=== PATIENT | male | born 1985 | race African-American/Black ===

== ENCOUNTER 2019-05-25 07:26 | Inpatient (IN) | payer OTHER ==
--- NOTE | 2019-05-25 08:26 | PDOC ---
History of Present Illness - General Chief Complaint: Weakness Stated Complaint: TINGLING SENSATION Time Seen by Provider: 05/25/19 07:55 History Source: Patient Exam Limitations: No Limitations - History of Present Illness Initial Comments: 05/25/19 08:21 34yo M with PMH of CP (R sided limp at baseline) presenting to ED with complaints of R fingers, forearm, R nose and R ear tingling that started at noon yesterday after a nap. Pt first thought it was due to the way he slept but symptoms persisted. He also endorses feeling more off balance than usual. He went to work and the work nurse told him to go to the ED. He states the tingling is still present and has not changed in intensity. Denies headache, injury, numbness, weakness, changes in vision, chest pain, sob, swelling, fevers , chills, n/v/d. PMD: PMH: see hpi PSH: tonsillectomy Meds: none Allergies: nkda Social: denies FH: HTN, DM NIH Stroke Scale - Last Known Well Date/Time & Onset Date Last Known Well: 05/24/19 Time Last Known Well: 12:00 - Initial Evaluation Level of consciousness: Alert Ask patient the month and their age: Answers both correctly Ask patient to open & close eyes; make fist and let go: Obeys both correctly Best gaze (horizontal eye movement): Normal Visual field testing: No visual field loss Facial paresis (Show teeth/raise eyebrows/close eyes tight): Normal symmetrical movement Motor Function: Left Arm: Normal Motor Function: Right Arm: Normal (extends arm 90 (or 45) degrees for 10 seconds without drift Motor Function: Left Leg: Normal (extends leg 30 degrees for 5 seconds without drift) Motor Function: Right Leg: Normal (extends leg 30 degrees for 5 seconds without drift) Limb Ataxia: Present in one limb Sensory(Use pinprick test arms,legs,trunk,face/side to side): Normal Best language (Describe picture, name items, read sentences): No Aphasia Dysarthria (read several words): Normal articulation Extinction and Inattention: No abnormality - Total Score NIH Stroke Scale Score: 1 Past History - Past Medical History Allergies/Adverse Reactions: Allergies Allergy/AdvReac Type Severity Reaction Status Date / Time No Known Allergies Allergy Verified 05/25/19 07:35 COPD: No Other medical history: CP - Suicide/Smoking/Psychosocial Hx Smoking History: Never smoked Have you smoked in the past 12 months: No Information on smoking cessation initiated: No Hx Alcohol Use: No Drug/Substance Use Hx: No *Physical Exam - Vital Signs Last Vital Signs Temp Pulse Resp BP Pulse Ox 97.7 F 84 18 187/126 H 96 05/25/19 07:32 05/25/19 07:58 05/25/19 07:58 05/25/19 07:58 05/25/19 07:58 ED Treatment Course - LABORATORY CBC & Chemistry Diagram: 05/25/19 08:42 05/25/19 08:42 - RADIOLOGY Radiology Studies Ordered: Category Date Time Status HEAD CT WITHOUT CONTRAST [CT] Stat CT Scan 05/25/19 07:56 Ordered Medical Decision Making - Medical Decision Making 05/25/19 08:23 34yo M with PMH of CP presenting to ED with complaints of R fingers, forearm, R nose and R ear tingling that started at noon yesterday after a nap. Pt first thought it was due to the way he slept but symptoms persisted. He also endorses feeling more off balance than usual. He went to work and the work nurse told him to go to the ED. He states the tingling is still present and has not changed in intensity. Denies headache, injury, numbness, weakness, changes in vision, chest pain, sob, swelling, fevers, chills, n/v/d. Vitals: hypertensive sbp 200s PE: cranial nerves intact, no sensory or motor deficits, cerebellar exam: Ddx includes but not limited to htn emergency v. urgency, intracranial bleed, cva, mass, malignancy, electrolyte abnormality, Lyme disease, encephalopathy low suspicion for infectious process. -CT head, ekg -cbc, cmp, coags, cardiac enzymes, ua NIHSS 1, R finger-nose. Symptoms present for over 4 hours, not a candidate for tPA 05/25/19 08:58
--- NOTE | 2019-05-25 08:43 | PDOC ---
Attending Attestation - Resident Resident Name: Dorothea Westfall - ED Attending Attestation I have performed the following: I have examined & evaluated the patient, The case was reviewed & discussed with the resident, I agree w/resident's findings & plan, Exceptions are as noted - HPI HPI: 05/25/19 08:40 34y hx of CP (mild R leg weakness) presents with complaint of parasthesias of R hand/forearm and on his Right nose since wakening from a nap yetserday around noon. Pte notes she does have slighthly increased waekness of his R leg where he feels a bit off balance when he is walking aorund. Pt denies any associated visoin changes, n/v, cp, palpitations, abd pain, headache, dizziness, vertigo, difficulty speaking, focal weakness beside R leg. GENERAL: The patient is awake, alert, and fully oriented, Nontoxic - in no acute distress. HEAD: Normocephalic, atraumatic. EYES: extraocular movements intact, sclera anicteric, conjunctiva clear. ENT: Normal voice, Moist mucous membranes. NECK: Normal range of motion, supple LUNGS: Breath sounds equal, clear to auscultation bilaterally. No wheezes, no rhonchi, no rales. HEART: Regular rate and rhythm, normal S1 and S2 without murmur, rub or gallop. ABDOMEN: Soft, nontender, No guarding, no rebound. No CVA tenderness EXTREMITIES: Normal range of motion, no edema. NEUROLOGICAL: No facial assymetry, Normal speech, PSYCH: Normal mood, normal affect. SKIN: Warm, Dry, normal turgor, NEURO: Mental status: The patient is oriented x3. Cranial nerves: Cranial nerves II through XII are intact Motor: The upper extremities are 5 over 5 in all muscle groups. R leg with subtle drift Sensation: Sensation is intact to light touch throughout. romberg negative Cerebellar: [id number]-[id number] is slightly ataxic on RUE Reflexes: 2+ and symmetric in the upper and lower extremities. Gait: deferred - Physicial Exam PE: 05/26/19 13:58 see above - Medical Decision Making 05/25/19 10:37 pts labs reviewed will treat his bp with labetalol ct neg for bleed, but may benefit from MRI to tease out MS vs CVA wlil give ASA will dw neuro and will admit
[2019-05-25 09:01] LABS: PH,URINE 5.5 (5.0-8.0); URINE APPEARANCE CLEAR; URINE BILIRUBIN NEGATIVE (NEGATIVE); URINE COLOR YELLOW; URINE GLUCOSE (UA) NEGATIVE (NEGATIVE); URINE KETONE NEGATIVE (NEGATIVE); URINE LEUK ESTERASE NEGATIVE (NEGATIVE); URINE NITRITE NEGATIVE (NEGATIVE); URINE PROTEIN NEGATIVE (NEGATIVE); URINE UROBILINOGEN 0.2 mg/dL (0.2-1.0)
[2019-05-25 09:02] LABS: INR 1.06 (0.83-1.09); PROTHROMBIN TIME (PATIENT) 12.5 SEC (9.7-13.0)
[2019-05-25 09:04] LABS: ACTIVATED PTT 37.3 SECONDS (25.2-36.5)
[2019-05-25 09:11] LABS: ALBUMIN 4.2 g/dl (3.4-5.0); BILIRUBIN,TOTAL 0.5 mg/dL (0.2-1); BLOOD UREA NITROGEN 12.1 mg/dL (7-18); CALCIUM 9.1 mg/dL (8.5-10.1); CREATININE 1.1 mg/dL (0.55-1.3); MAGNESIUM 2.3 mg/dL (1.8-2.4); TOT PROT 8.2 g/dl (6.4-8.2)
[2019-05-25 09:18] LABS: BASO % 0.5 % (0-2.0); EOS % 1.5 % (0-4.5); HEMATOCRIT 44.2 % (35.4-49); HEMOGLOBIN 13.6 GM/dL (11.7-16.9); LYMPH % 15.3 % (8-40); MCH 21.5 pg (25.7-33.7); MCHC 30.9 g/dl (32.0-35.9); MEAN CELL VOLUME 69.8 fl (80-96); MEAN PLT VOLUME 8.9 fl (7.5-11.1); NEUT % 75.7 % (42.8-82.8); PLATELET COUNT 198 K/MM3 (134-434); RBC 6.33 M/mm3 (4.00-5.60); RDW 14.7 % (11.9-15.9); WHITE BLOOD COUNT 7.9 K/mm3 (4.0-10.0)
[2019-05-25] MEDS: LABETALOL HCL 5 MG/1 ML (100MG/20 ML VIAL) IVPUSH ONE ×2 (10:27→10:30)
[2019-05-25] MEDS ORDERED: ASPIRIN 81 MG CHEWABLE TABLETS PO ONE (10:37)
[2019-05-25] MEDS ORDERED: ASPIRIN COATED 81 MG TABLET.EC ONE (10:40)
--- NOTE | 2019-05-25 11:05 | CON.CARD ---
Consult Consult Specialty:: Cardiology Referred by:: Sadia Sena MD Reason for Consultation:: Hypertensive urgency - History of Present Illness Chief Complaint: Hypertensive urgency History of Present Illness: 34y hx of CP (mild R leg weakness) presents with complaint of parasthesias of R hand/forearm and on his right nose since wakening from a nap yesterday around noon since resolving. Pt notes she does have slightly increased weakness of his R leg where he feels a bit off balance when he is walking around. Pt denies any associated vision changes, n/v, cp, dyspnea, near or true syncope, palpitations , abd pain, headache, dizziness, vertigo, difficulty speaking, focal weakness beside R leg. SBP uncontrolled in ER-- > 180, given ASA and labetolol. MRI reviewed+ acute left basal ganglia infarct. - History Source History Provided By: Patient Limitations to Obtaining History: No Limitations - Alcohol/Substance Use Hx Alcohol Use: No - Smoking History Smoking history: Never smoked Have you smoked in the past 12 months: No Home Medications - Allergies Allergies/Adverse Reactions: Allergies Allergy/AdvReac Type Severity Reaction Status Date / Time No Known Allergies Allergy Verified 05/25/19 07:35 - Home Medications Home Medications: Ambulatory Orders NK [No Known Home Medication] 05/25/19 Review of Systems - Review of Systems Neurological: reports: Numbness, Parasthesia, Pre-Existing Deficit Vital Signs: Vital Signs Temperature 97.7 F 05/25/19 07:32 Pulse Rate 74 05/25/19 10:40 Respiratory Rate 15 05/25/19 10:40 Blood Pressure 162/112 H 05/25/19 10:40 O2 Sat by Pulse Oximetry (%) 95 05/25/19 10:40 Constitutional: Yes: No Distress, Calm Neck: Yes: Supple Respiratory: Yes: Regular, CTA Bilaterally Gastrointestinal: Yes: Normal Bowel Sounds, Soft Cardiovascular: Yes: Regular Rate and Rhythm JVD: No Carotid Bruit: No Heart Sounds: Yes: S1, S2 Edema: No - Other Data Labs, Other Data: CBC, BMP 05/25/19 08:42 05/25/19 08:42 INR, PTT INR 1.06 (0.83-1.09) 05/25/19 08:42 Troponin, BNP 05/25/19 08:42 Troponin I < 0.02 Troponin, BNP 05/25/19 08:42 Troponin I < 0.02 NSR @ 76 lateral TWI Problem List - Problems (1) Hypertensive urgency Code(s): I16.0 - HYPERTENSIVE URGENCY (2) Basal ganglia stroke Code(s): I63.9 - CEREBRAL INFARCTION, UNSPECIFIED Assessment/Plan IMPRESSION: Focal acute/subacute infarct in the left periventricular white matter extending inferiorly to posterior margin of the left basal ganglia measuring approximately 6 mm in width. Mild dilatation of the lateral ventricles and T2 hyperintense foci in the periventricular white matter suspicious for demyelinating plaques. Further characterization with T2 FLAIR sagittal images of the brain is needed. Contrast-enhanced MRI of the brain with also be helpful to rule out any active demyelinating plaques. 1.5 cm retention cyst versus polyp in the left x-ray antrum, inferiorly 1. Acute left basal ganglia stroke 2. Hypertensive urgency 3. Mild cerebral palsy P:1. Ruled out for [place], check TSH, lipid panel, Ha1c, echo to assess ventricular and valve fxn 2. monitor technician r/o PAF 3. Agree with ASA 81 qd, start losartan 25 qd with uptitration as hemodynamics tolerate 4. Thank you for consultative opportunity
--- NOTE | 2019-05-25 11:09 | EKG ---
Test Reason : Blood Pressure : / mmHG Vent. Rate : 076 BPM Atrial Rate : 076 BPM P-R Int : 178 ms QRS Dur : 078 ms QT Int : 384 ms P-R-T Axes : 068 -19 134 degrees QTc Int : 432 ms NORMAL SINUS RHYTHM T WAVE ABNORMALITY, CONSIDER LATERAL ISCHEMIA ABNORMAL ECG NO PREVIOUS ECGS AVAILABLE Confirmed by HELENE SPRING MD ([id number]) on 05/25/2019 11:09:22 AM Referred By: Confirmed By:HELENE SPRING MD
[2019-05-25] MEDS ORDERED: LABETALOL HCL 5 MG/1 ML (100MG/20 ML VIAL) IVPUSH ONE (13:21)
[2019-05-25 14:51] LABS: ANISOCYTOSIS 2+; MACROCYTOSIS 0; PLATELET ESTIMATE NORMAL; TEAR DROP CELLS 1+
--- NOTE | 2019-05-25 17:09 | HP ---
Admitting History and Physical - Primary Care Physician PCP: Sadia Sena - Admission History of Present Illness: 34y hx of CP (mild R leg weakness) presents with complaint of parasthesias of R hand/forearm and on his Right nose since wakening from a nap yetserday around noon. Pte notes she does have slighthly increased waekness of his R leg where he feels a bit off balance when he is walking aorund. Pt denies any associated visoin changes, n/v, cp, palpitations, abd pain, headache, dizziness, vertigo, difficulty speaking, focal weakness beside R leg. - Past Medical History Cardiovascular: Yes: HTN - Smoking History Smoking history: Never smoked Have you smoked in the past 12 months: No - Alcohol/Substance Use Hx Alcohol Use: No Home Medications - Allergies Allergies/Adverse Reactions: Allergies Allergy/AdvReac Type Severity Reaction Status Date / Time No Known Allergies Allergy Verified 05/25/19 07:35 - Home Medications Home Medications: Ambulatory Orders Aspirin [ASA -] 81 mg PO DAILY #30 tab.chew 05/26/19 Losartan Potassium [Cozaar -] 25 mg PO DAILY #30 tablet 05/26/19 Metoprolol Succinate [Toprol XL -] 25 mg PO DAILY #30 tab.sr.24h 05/26/19 Rosuvastatin [Crestor -] 20 mg PO HS #30 tablet 05/26/19 Physical Examination Vital Signs: Vital Signs Temperature 98.3 F 05/25/19 15:45 Pulse Rate 72 05/25/19 15:45 Respiratory Rate 15 05/25/19 15:45 Blood Pressure 177/117 H 05/25/19 15:45 O2 Sat by Pulse Oximetry (%) 96 05/25/19 15:45 Constitutional: Yes: No Distress HENT: Yes: Atraumatic Neck: Yes: Supple Cardiovascular: Yes: Regular Rate and Rhythm Respiratory: Yes: CTA Bilaterally Gastrointestinal: Yes: Normal Bowel Sounds Extremities: Yes: WNL Edema: No Peripheral Pulses WNL: Yes Neurological: Yes: Alert, Oriented ...Motor Strength: WNL Labs: CBC, BMP 05/25/19 08:42 05/25/19 08:42 Imaging - Results Cat Scan: Report Reviewed Problem List - Problems (1) HTN (hypertension) Assessment/Plan: on meds monitor bp Code(s): I10 - ESSENTIAL (PRIMARY) HYPERTENSION (2) Hypertensive urgency Code(s): I16.0 - HYPERTENSIVE URGENCY (3) Tingling of right arm and right side of face Assessment/Plan: will get mri brain neuro consult Code(s): R20.2 - PARESTHESIA OF SKIN Assessment/Plan Laboratory Tests 05/25/19 05/25/19 05/25/19 08:42 08:42 08:42 WBC 7.9 RBC 6.33 H Hgb 13.6 Hct 44.2 MCV 69.8 L MCH 21.5 L MCHC 30.9 L RDW 14.7 Plt Count 198 MPV 8.9 Absolute Neuts (auto) 6.0 Neutrophils % 75.7 Lymphocytes % 15.3 Monocytes % 7.0 Eosinophils % 1.5 Basophils % 0.5 Nucleated RBC % 0 Hypochromia 0 Platelet Estimate Normal Platelet Comment Present Polychromasia 0 Poikilocytosis 2+ Anisocytosis 2+ Microcytosis 1+ Macrocytosis 0 Spherocytes 1+ Tear Drop Cells 1+ [place] Cells 2+ PT with INR INR PTT (Actin FS) Sodium 140 Potassium 4.0 Chloride 104 Carbon Dioxide 32 Anion Gap 4 L BUN 12.1 Creatinine 1.1 Est GFR (CKD-EPI)AfAm 100.27 Est GFR (CKD-EPI)NonAf 86.51 Random Glucose 109 H Calcium 9.1 Magnesium 2.3 Total Bilirubin 0.5 AST 23 ALT 50 Alkaline Phosphatase 78 Creatine Kinase 141 Troponin I < 0.02 Total Protein 8.2 Albumin 4.2 Urine Color Urine Appearance Urine pH Ur Specific [place] Urine Protein Urine Glucose (UA) Urine Ketones Urine Blood Urine Nitrite Urine Bilirubin Urine Urobilinogen Ur Leukocyte Esterase Blood Type Antibody Screen 05/25/19 05/25/19 05/25/19 08:42 08:42 08:42 WBC RBC Hgb Hct MCV MCH MCHC RDW Plt Count MPV Absolute Neuts (auto) Neutrophils % Lymphocytes % Monocytes % Eosinophils % Basophils % Nucleated RBC % Hypochromia Platelet Estimate Platelet Comment Polychromasia Poikilocytosis Anisocytosis Microcytosis Macrocytosis Spherocytes Tear Drop Cells [place] Cells PT with INR 12.50 INR 1.06 PTT (Actin FS) 37.3 H Sodium Potassium Chloride Carbon Dioxide Anion Gap BUN Creatinine Est GFR (CKD-EPI)AfAm Est GFR (CKD-EPI)NonAf Random Glucose Calcium Magnesium Total Bilirubin AST ALT Alkaline Phosphatase Creatine Kinase Troponin I Total Protein Albumin Urine Color Yellow Urine Appearance Clear Urine pH 5.5 Ur Specific [place] 1.015 Urine Protein Negative Urine Glucose (UA) Negative Urine Ketones Negative Urine Blood Negative Urine Nitrite Negative Urine Bilirubin Negative Urine Urobilinogen 0.2 Ur Leukocyte Esterase Negative Blood Type O POSITIVE Antibody Screen Negative Active Medications Generic Name Dose Route Start Last Admin Trade Name Freq PRN Reason Stop Dose Admin Acetaminophen 650 mg 05/25/19 17:15 Tylenol Oral Solution - PO Q6H PRN PAIN Aspirin 81 mg 05/26/19 10:00 05/26/19 09:36 Asa - PO 81 mg DAILY HUGO Administration Losartan Potassium 50 mg 05/27/19 10:00 Cozaar - PO DAILY HUGO Metoprolol Succinate 25 mg 05/26/19 10:00 05/26/19 09:36 Toprol Xl - PO 25 mg DAILY HUGO Administration Metoprolol Succinate 50 mg 05/27/19 10:00 Toprol Xl - PO DAILY [facility] Rosuvastatin Calcium 20 mg 05/26/19 22:00 Crestor - PO HS HUGO
[2019-05-25] MEDS ORDERED: ACETAMINOPHEN 650 MG/20.3 ML ORAL SOLUTION (CUPS) PO PRN (17:15)
[2019-05-25] MEDS ORDERED: metFORMIN HCL 500 MG TABLET (FP) ONE (17:54)
--- NOTE | 2019-05-25 19:02 | CON.NEURO ---
Consult - History of Present Illness History of Present Illness: 34y hx of CP (mild R leg weakness) presents with complaint of parasthesias of R hand/forearm and on his Right nose since wakening from a nap yesterday around noon. Pte notes she does have slighthly increased waekness of his R leg where he feels a bit off balance when he is walking around. Pt denies any associated visoin changes, n/v, cp, palpitations, abd pain, headache, dizziness, vertigo, difficulty speaking, focal weakness beside R leg. SBP uncontrolled in ER-- > 180. MRI reviewed+ acute L BG infarct. IMPRESSION: Focal acute/subacute infarct in the left periventricular white matter extending inferiorly to posterior margin of the left basal ganglia measuring approximately 6 mm in width. Mild dilatation of the lateral ventricles and T2 hyperintense foci in the periventricular white matter suspicious for demyelinating plaques. Further characterization with T2 FLAIR sagittal images of the brain is needed. Contrast-enhanced MRI of the brain with also be helpful to rule out any active demyelinating plaques. 1.5 cm retention cyst versus polyp in the left x-ray antrum, inferiorly - Past Medical History Cardio/Vascular: Yes: HTN - Alcohol/Substance Use Hx Alcohol Use: No - Smoking History Smoking history: Never smoked Have you smoked in the past 12 months: No Home Medications - Allergies Allergies/Adverse Reactions: Allergies Allergy/AdvReac Type Severity Reaction Status Date / Time No Known Allergies Allergy Verified 05/25/19 07:35 - Home Medications Home Medications: Ambulatory Orders NK [No Known Home Medication] 05/25/19 Physical Exam-Neuro Vital Signs: Vital Signs Temperature 98.3 F 05/25/19 15:45 Pulse Rate 78 05/25/19 17:22 Respiratory Rate 20 05/25/19 17:22 Blood Pressure 167/112 H 05/25/19 17:22 O2 Sat by Pulse Oximetry (%) 96 05/25/19 17:22 Labs: CBC, BMP 05/25/19 08:42 05/25/19 08:42 INR, PTT INR 1.06 (0.83-1.09) 05/25/19 08:42 - Neuro Exam Level Of Consciousness: Yes: Alert, Oriented to Person (strabimus and dysicnjuagte gaze at baseline, no facial, motor min R drift, pp dec on R , reflexes symmetric) Imaging - Results Cat Scan: Report Reviewed, Image Reviewed Problem List - Problems (1) Basal ganglia stroke Code(s): I63.9 - CEREBRAL INFARCTION, UNSPECIFIED (2) HTN (hypertension) Code(s): I10 - ESSENTIAL (PRIMARY) HYPERTENSION (3) Hypertensive urgency Code(s): I16.0 - HYPERTENSIVE URGENCY Assessment/Plan 34y hx of CP (mild R leg weakness) presents with complaint of parasthesias of R hand/forearm and on his Right nose since wakening from a nap yesterday around noon. Pte notes she does have slighthly increased waekness of his R leg where he feels a bit off balance when he is walking around. Pt denies any associated visoin changes, n/v, cp, palpitations, abd pain, headache, dizziness, vertigo, difficulty speaking, focal weakness beside R leg. SBP uncontrolled in ER-- > 180. MRI reviewed+ acute L BG infarct. IMPRESSION: Focal acute/subacute infarct in the left periventricular white matter extending inferiorly to posterior margin of the left basal ganglia measuring approximately 6 mm in width. Mild dilatation of the lateral ventricles and T2 hyperintense foci in the periventricular white matter suspicious for demyelinating plaques. Further characterization with T2 FLAIR sagittal images of the brain is needed. Contrast-enhanced MRI of the brain with also be helpful to rule out any active demyelinating plaques. 1.5 cm retention cyst versus polyp in the left x-ray antrum, inferiorly AP : new L BG infarct presents with new R sided hemisensory; out of TPA window, sx started last night. + L BG infarct small vessel mediated setting of elevated BP, he was unaware of hypertension Check Dopplers, holter, echo ASA, statin, BP control, correct 25% within first 24 hours, cardiology eval lipids, ESR, TSH, tox screen DR LUQUE
[2019-05-25] MEDS ORDERED: LOSARTAN POTASSIUM 50 MG TABLET (FP) ONE (19:51)
[2019-05-25] MEDS: LOSARTAN POTASSIUM 25 MG TABLET PO SCH (19:56)
[2019-05-25] MEDS ORDERED: ASPIRIN 81 MG CHEWABLE TABLETS ONE (22:00)
[2019-05-26 01:51] VITALS: BMI 39.4
--- NOTE | 2019-05-26 06:17 | PN ---
Progress Note (short form) - Note Progress Note: Chief Complaint: Event noted, notes reviewed, resting in bed denies any chest pain or dyspnea, right leg weakness improved History of Present Illness: Seen and examined on telemetry. Event noted, notes reviewed, resting in bed denies any chest pain or dyspnea, right leg weakness improved - Current Medication List Current Medications Acetaminophen (Tylenol Oral Solution -) 650 mg PO Q6H PRN PRN Reason: PAIN Aspirin (Asa -) 81 mg PO DAILY [facility] Losartan Potassium (Cozaar -) 25 mg PO DAILY [facility] Last Admin: 05/25/19 19:56 Dose: 25 mg Review of Systems Cardiovascular: As noted above Respiratory: denies Cough or Sputum Production Gastrointestinal: denies: Nausea, Vomiting, Diarrhea, Constipation or Abdominal Discomfort Musculoskeletal: Right Leg Weakness, improved - Objective Vital Signs: Last Vital Signs Temp Pulse Resp BP Pulse Ox 98.8 F 81 18 141/84 97 05/26/19 05:00 05/26/19 05:00 05/26/19 05:00 05/26/19 05:00 05/26/19 01:55 Intake & Output 05/23/19 05/24/19 05/25/19 05/26/19 23:59 23:59 23:59 23:59 Intake Total 600 Balance 600 Weight 272 lb 282 lb 12.8 oz Constitutional: No Distress, Calm Neck: Supple Negative JVD No Bruit Respiratory: Clear to A&P Bilaterally Cardiovascular: S1 S2 Regular Rate Rhythm Gastrointestinal: Soft Benign Normal Bowel Sounds Ext: Negative Edema Labs: Troponin, BNP 05/25/19 05/25/19 08:42 17:55 Troponin I < 0.02 < 0.02 CBC, BMP 05/25/19 08:42 05/25/19 08:42 Hepatic Panel Total Bilirubin 0.5 mg/dL (0.2-1) 05/25/19 08:42 AST 23 U/L (15-37) 05/25/19 08:42 ALT 50 U/L (13-61) 05/25/19 08:42 Alkaline Phosphatase 78 U/L (45-117) 05/25/19 08:42 Albumin 4.2 g/dl (3.4-5.0) 05/25/19 08:42 INR, PTT INR 1.06 (0.83-1.09) 05/25/19 08:42 ASSESSMENT: 1. clinical presentation consistent with acute left basal ganglia stroke 2. Hypertensive urgency 3. Mild cerebral palsy PLAN: 1. Echocardiography to assess bi-ventricular and valve functions 2. Continue telemetry monitoring to exclude PAF/paroxysmal atrial fibrillation- may require prison monitoring if embolic stroke is a suspect 3. Continue ASA 4. Continue Losartan with uptitration as hemodynamics tolerate 5. Add B-Blockers Toprol XL with uptitration as hemodynamics tolerate Attila Devries M.D.
[2019-05-26] MEDS: LOSARTAN POTASSIUM 25 MG TABLET PO SCH (09:36)
[2019-05-26] MEDS: ASPIRIN 81 MG CHEWABLE TABLETS PO SCH (09:36)
[2019-05-26] MEDS ORDERED: metoPROLOL SUCCINATE 25 MG TAB.SR.24H (FP) PO SCH (10:00)
--- NOTE | 2019-05-26 10:46 | ECHO ---
Version: 1 Name: JASON OWENS Exam: Adult Echocardiogram Study Date: 05/26/2019, 8:10 AM Age: 34 Years MMode/2D Measurements & Calculations IVSd: 1.52 cm LVIDs: 2.5 cm LVIDd: 3.6 cm LVPWd: 1.24 cm ACS: 2.18 cm Ao root diam: 2.26 cm LA dimension: 2.7 cm Doppler Measurements & Calculations MV E max robert: 67.5 cm/sec Med E/e': 11.0 MV A max robert: 52.6 cm/sec Med Peak E' Robert: 6.1 cm/sec MV E/A: 1.28 Lat E/e': 12.3 Lat Peak E' Robert: 5.5 cm/sec Ao max P.5 mmHg Ao mean P.15 mmHg Ao V2 max: 94.1 cm/sec Left Ventricle The left ventricular size, thickness and function are normal. Ejection Fraction = 65. The transmitra l spectral Doppler flow pattern is suggestive of impaired LV relaxation. Right Ventricle The right ventricle is normal in size and function. Atria Normal left and right atrial size and function. Mitral Valve There is moderate mitral valve thickening. There is mild mitral regurgitation. Tricuspid Valve The tricuspid valve is normal. There is mild tricuspid regurgitation. Aortic Valve There is moderate aortic sclerosis.;. Mild aortic regurgitation. Pulmonic Valve The pulmonic valve is not well visualized. Great Vessels The aortic root is normal size. Normal aortic arch, descending and ascending aorta. Pericardium/Pleura There is no pericardial effusion. Summary Statements The left ventricular size, thickness and function are normal The right ventricle is normal in size and function. The transmitral spectral Doppler flow pattern is suggestive of impaired LV relaxation. Normal left and right atrial size and function. There is moderate mitral valve thickening. There is mild mitral regurgitation. The tricuspid valve is normal. There is mild tricuspid regurgitation. There is moderate aortic sclerosis.; Mild aortic regurgitation. The pulmonic valve is not well visualized. The aortic root is normal size. Normal aortic arch, descending and ascending aorta There is no pericardial effusion. Joseph Xiong 05/26/2019, 9:46 AM Ordering Physician: Nolan Castaneda Performed By: Ericka Watts
--- NOTE | 2019-05-26 13:58 | PN ---
Progress Note (short form) - Note Progress Note: 34y hx of CP (mild R leg weakness) presents with complaint of parasthesias of R hand/forearm and on his Right nose since wakening from a nap yesterday around noon. Pte notes she does have slighthly increased waekness of his R leg where he feels a bit off balance when he is walking around. Pt denies any associated visoin changes, n/v, cp, palpitations, abd pain, headache, dizziness, vertigo, difficulty speaking, focal weakness beside R leg. SBP uncontrolled in ER-- > 180. MRI reviewed+ acute L BG infarct. IMPRESSION: Focal acute/subacute infarct in the left periventricular white matter extending inferiorly to posterior margin of the left basal ganglia measuring approximately 6 mm in width. Mild dilatation of the lateral ventricles and T2 hyperintense foci in the periventricular white matter suspicious for demyelinating plaques. Further characterization with T2 FLAIR sagittal images of the brain is needed. Contrast-enhanced MRI of the brain with also be helpful to rule out any active demyelinating plaques. 1.5 cm retention cyst versus polyp in the left x-ray antrum, inferiorly Fu : numbness R side face somewhat better--no new Sx ECHO -impaired LV relaxation otherwise NL - Past Medical History Cardio/Vascular: Yes: HTN - Alcohol/Substance Use Hx Alcohol Use: No - Smoking History Smoking history: Never smoked Have you smoked in the past 12 months: No Home Medications - Allergies Allergies/Adverse Reactions: Allergies Allergy/AdvReac Type Severity Reaction Status Date / Time No Known Allergies Allergy Verified 05/25/19 07:35 - Home Medications Home Medications: Ambulatory Orders NK [No Known Home Medication] 05/25/19 Physical Exam-Neuro Vital Signs: Vital Signs Temperature 98.3 F 05/25/19 15:45 Pulse Rate 78 05/25/19 17:22 Respiratory Rate 20 05/25/19 17:22 Blood Pressure 167/112 H 05/25/19 17:22 O2 Sat by Pulse Oximetry (%) 96 05/25/19 17:22 Labs: CBC, BMP 05/25/19 08:42 05/25/19 08:42 INR, PTT INR 1.06 (0.83-1.09) 05/25/19 08:42 - Neuro Exam Level Of Consciousness: Yes: Alert, Oriented to Person (strabimus and dysicnjuagte gaze at baseline, no facial, motor min R drift, pp dec on R , reflexes symmetric) Imaging - Results Cat Scan: Report Reviewed, Image Reviewed Problem List - Problems (1) Basal ganglia stroke Code(s): I63.9 - CEREBRAL INFARCTION, UNSPECIFIED (2) HTN (hypertension) Code(s): I10 - ESSENTIAL (PRIMARY) HYPERTENSION (3) Hypertensive urgency Code(s): I16.0 - HYPERTENSIVE URGENCY Assessment/Plan 34y hx of CP (mild R leg weakness) presents with complaint of parasthesias of R hand/forearm and on his Right nose since wakening from a nap yesterday around noon. Pte notes she does have slighthly increased waekness of his R leg where he feels a bit off balance when he is walking around. Pt denies any associated visoin changes, n/v, cp, palpitations, abd pain, headache, dizziness, vertigo, difficulty speaking, focal weakness beside R leg. SBP uncontrolled in ER-- > 180. MRI reviewed+ acute L BG infarct. IMPRESSION: Focal acute/subacute infarct in the left periventricular white matter extending inferiorly to posterior margin of the left basal ganglia measuring approximately 6 mm in width. Mild dilatation of the lateral ventricles and T2 hyperintense foci in the periventricular white matter suspicious for demyelinating plaques. Further characterization with T2 FLAIR sagittal images of the brain is needed. Contrast-enhanced MRI of the brain with also be helpful to rule out any active demyelinating plaques. 1.5 cm retention cyst versus polyp in the left x-ray antrum, inferiorly AP : new L BG infarct presents with new R sided hemisensory; out of TPA window, sx started 05/24/19 + L BG infarct small vessel mediated setting of elevated BP, he was unaware of hypertension Dopplers -P Echo noted cont ASA, statin, BP control -to optimize await Dopplers and then can be cleared ; can FU as outpt DR LUQUE [phone] Problem List - Problems (1) Basal ganglia stroke Code(s): I63.9 - CEREBRAL INFARCTION, UNSPECIFIED (2) HTN (hypertension) Code(s): I10 - ESSENTIAL (PRIMARY) HYPERTENSION (3) Hypertensive urgency Code(s): I16.0 - HYPERTENSIVE URGENCY
--- NOTE | 2019-05-26 15:10 | DS ---
Physical Examination Vital Signs: Vital Signs Temperature 98.1 F 05/26/19 14:00 Pulse Rate 85 05/26/19 14:00 Respiratory Rate 18 05/26/19 14:00 Blood Pressure 161/101 H 05/26/19 14:00 O2 Sat by Pulse Oximetry (%) 98 05/26/19 09:00 Constitutional: Yes: No Distress HENT: Yes: Atraumatic Neck: Yes: Supple Cardiovascular: Yes: Regular Rate and Rhythm Respiratory: Yes: CTA Bilaterally Gastrointestinal: Yes: Normal Bowel Sounds Extremities: Yes: WNL Edema: No Peripheral Pulses WNL: Yes Neurological: Yes: Alert, Oriented Labs: CBC, BMP 05/25/19 08:42 05/25/19 08:42 Discharge Summary Reason For Visit: HYPERTENSIVE EMERGENCY,PARESTHESIA Current Active Problems Basal ganglia stroke (Acute) HTN (hypertension) (Acute) Hypertensive urgency (Acute) - Instructions Referrals: Attila Devries MD [Staff Physician] - Paresh Guaman DO [Staff Physician] - Sadia Sena MD [Staff Physician] - - Home Medications Comprehensive Discharge Medication List: Ambulatory Orders Aspirin [ASA -] 81 mg PO DAILY #30 tab.chew 05/26/19 Losartan Potassium [Cozaar -] 25 mg PO DAILY #30 tablet 05/26/19 Metoprolol Succinate [Toprol XL -] 25 mg PO DAILY #30 tab.sr.24h 05/26/19 Rosuvastatin [Crestor -] 20 mg PO HS #30 tablet 05/26/19 fu neuro and cardio as out patient
[2019-05-26] MEDS ORDERED: LOSARTAN POTASSIUM 25 MG TABLET PO ONE (17:15)
[2019-05-26] MEDS ORDERED: metoPROLOL SUCCINATE 25 MG TAB.SR.24H (FP) PO ONE (17:15)
--- NOTE | 2019-05-26 17:34 | PN ---
Progress Note, Physician - Current Medication List Current Medications: Active Medications Acetaminophen (Tylenol Oral Solution -) 650 mg PO Q6H PRN PRN Reason: PAIN Aspirin (Asa -) 81 mg PO DAILY [facility] Last Admin: 05/26/19 09:36 Dose: 81 mg Losartan Potassium (Cozaar -) 50 mg PO DAILY [facility] Metoprolol Succinate (Toprol Xl -) 25 mg PO DAILY [facility] Last Admin: 05/26/19 09:36 Dose: 25 mg Metoprolol Succinate (Toprol Xl -) 50 mg PO DAILY [facility] Rosuvastatin Calcium (Crestor -) 20 mg PO [facility] - Objective Vital Signs: Vital Signs Temperature 98.1 F 05/26/19 14:00 Pulse Rate 85 05/26/19 14:00 Respiratory Rate 18 05/26/19 14:00 Blood Pressure 161/101 H 05/26/19 14:00 O2 Sat by Pulse Oximetry (%) 98 05/26/19 09:00 Constitutional: Yes: No Distress HENT: Yes: Atraumatic Neck: Yes: Supple Cardiovascular: Yes: Regular Rate and Rhythm Respiratory: Yes: CTA Bilaterally Gastrointestinal: Yes: Normal Bowel Sounds Extremities: Yes: WNL Edema: No Neurological: Yes: Alert, Oriented Labs: CBC, BMP 05/25/19 08:42 05/25/19 08:42 INR, PTT INR 1.06 (0.83-1.09) 05/25/19 08:42 Problem List - Problems (1) HTN (hypertension) Assessment/Plan: on meds bp still high monitor Code(s): I10 - ESSENTIAL (PRIMARY) HYPERTENSION (2) Hypertensive urgency Code(s): I16.0 - HYPERTENSIVE URGENCY (3) Tingling of right arm and right side of face Assessment/Plan: mri brain done report reviewed Focal acute/subacute infarct in the left periventricular white matter extending inferiorly to posterior margin of the left basal ganglia measuring approximately 6 mm in width. Code(s): R20.2 - PARESTHESIA OF SKIN
[2019-05-26] MEDS ORDERED: ROSUVASTATIN CA 20 MG TABLET (FP) PO SCH (22:00)
[2019-05-26] MEDS: LOSARTAN POTASSIUM 50 MG TABLET (FP) PO SCH (22:00)
[2019-05-27] MEDS: LOSARTAN POTASSIUM 50 MG TABLET (FP) PO SCH (09:42)
[2019-05-27] MEDS: ASPIRIN 81 MG CHEWABLE TABLETS PO SCH (09:42)
[2019-05-27] MEDS ORDERED: LOSARTAN POTASSIUM 50 MG TABLET (FP) PO SCH (10:00)
--- NOTE | 2019-05-27 11:10 | PN ---
Progress Note (short form) - Note Progress Note: 34y hx of CP (mild R leg weakness) presents with complaint of parasthesias of R hand/forearm and on his Right nose since wakening from a nap yesterday around noon. Pte notes she does have slighthly increased waekness of his R leg where he feels a bit off balance when he is walking around. Pt denies any associated visoin changes, n/v, cp, palpitations, abd pain, headache, dizziness, vertigo, difficulty speaking, focal weakness beside R leg. SBP uncontrolled in ER-- > 180. MRI reviewed+ acute L BG infarct. IMPRESSION: Focal acute/subacute infarct in the left periventricular white matter extending inferiorly to posterior margin of the left basal ganglia measuring approximately 6 mm in width. Mild dilatation of the lateral ventricles and T2 hyperintense foci in the periventricular white matter suspicious for demyelinating plaques. Further characterization with T2 FLAIR sagittal images of the brain is needed. Contrast-enhanced MRI of the brain with also be helpful to rule out any active demyelinating plaques. 1.5 cm retention cyst versus polyp in the left x-ray antrum, inferiorly Fu : numbness R side face somewhat better--no new Sx ECHO -impaired LV relaxation otherwise NL Doppler (-) - Past Medical History Cardio/Vascular: Yes: HTN - Alcohol/Substance Use Hx Alcohol Use: No - Smoking History Smoking history: Never smoked Have you smoked in the past 12 months: No Home Medications - Allergies Allergies/Adverse Reactions: Allergies Allergy/AdvReac Type Severity Reaction Status Date / Time No Known Allergies Allergy Verified 05/25/19 07:35 - Home Medications Home Medications: Ambulatory Orders NK [No Known Home Medication] 05/25/19 Physical Exam-Neuro Vital Signs: Vital Signs Temperature 98.4 F 05/27/19 05:00 Pulse Rate 69 05/27/19 05:00 Respiratory Rate 20 05/27/19 05:00 Blood Pressure 148/87 05/27/19 05:00 O2 Sat by Pulse Oximetry (%) 97 05/27/19 01:00 Labs: CBC, BMP 05/25/19 08:42 05/25/19 08:42 INR, PTT INR 1.06 (0.83-1.09) 05/25/19 08:42 - Neuro Exam Level Of Consciousness: Yes: Alert, Oriented to Person (strabimus and dysicnjuagte gaze at baseline, no facial, motor min R drift, pp dec on R , reflexes symmetric) Imaging - Results Cat Scan: Report Reviewed, Image Reviewed Problem List - Problems (1) Basal ganglia stroke Code(s): I63.9 - CEREBRAL INFARCTION, UNSPECIFIED (2) HTN (hypertension) Code(s): I10 - ESSENTIAL (PRIMARY) HYPERTENSION (3) Hypertensive urgency Code(s): I16.0 - HYPERTENSIVE URGENCY Assessment/Plan 34y hx of CP (mild R leg weakness) presents with complaint of parasthesias of R hand/forearm and on his Right nose since wakening from a nap yesterday around noon. Pte notes she does have slighthly increased waekness of his R leg where he feels a bit off balance when he is walking around. Pt denies any associated visoin changes, n/v, cp, palpitations, abd pain, headache, dizziness, vertigo, difficulty speaking, focal weakness beside R leg. SBP uncontrolled in ER-- > 180. MRI reviewed+ acute L BG infarct. IMPRESSION: Focal acute/subacute infarct in the left periventricular white matter extending inferiorly to posterior margin of the left basal ganglia measuring approximately 6 mm in width. Mild dilatation of the lateral ventricles and T2 hyperintense foci in the periventricular white matter suspicious for demyelinating plaques. Further characterization with T2 FLAIR sagittal images of the brain is needed. Contrast-enhanced MRI of the brain with also be helpful to rule out any active demyelinating plaques. 1.5 cm retention cyst versus polyp in the left x-ray antrum, inferiorly AP : new L BG infarct presents with new R sided hemisensory; out of TPA window, sx started 05/24/19 + L BG infarct small vessel mediated setting of elevated BP, he was unaware of hypertension Dopplers (-) Echo noted cont ASA, statin, BP control -to optimize as oupt neuro cleared for DC can FU as outpt DR LUQUE [phone] Problem List - Problems (1) Basal ganglia stroke Code(s): I63.9 - CEREBRAL INFARCTION, UNSPECIFIED (2) HTN (hypertension) Code(s): I10 - ESSENTIAL (PRIMARY) HYPERTENSION (3) Hypertensive urgency Code(s): I16.0 - HYPERTENSIVE URGENCY
--- NOTE | 2019-05-27 11:38 | PN ---
Progress Note, Physician History of Present Illness: Right leg weakness, right facial and hand/forearm parasthesias and numbness resolved. - Current Medication List Current Medications: Active Medications Acetaminophen (Tylenol Oral Solution -) 650 mg PO Q6H PRN PRN Reason: PAIN Aspirin (Asa -) 81 mg PO DAILY [facility] Last Admin: 05/27/19 09:42 Dose: 81 mg Losartan Potassium (Cozaar -) 50 mg PO BID [facility] Last Admin: 05/27/19 09:42 Dose: 50 mg Metoprolol Succinate (Toprol Xl -) 50 mg PO DAILY [facility] Last Admin: 05/27/19 09:42 Dose: 50 mg Rosuvastatin Calcium (Crestor -) 20 mg PO HS [facility] Last Admin: 05/26/19 22:00 Dose: 20 mg - Objective Vital Signs: Vital Signs Temperature 98.4 F 05/27/19 05:00 Pulse Rate 81 05/27/19 10:00 Respiratory Rate 20 05/27/19 10:00 Blood Pressure 158/98 05/27/19 10:00 O2 Sat by Pulse Oximetry (%) 98 05/27/19 10:00 Constitutional: Yes: No Distress, Calm Neck: Yes: Supple Cardiovascular: Yes: Regular Rate and Rhythm Respiratory: Yes: Regular, CTA Bilaterally Gastrointestinal: Yes: Normal Bowel Sounds, Soft Edema: No Labs: CBC, BMP 05/25/19 08:42 05/25/19 08:42 INR, PTT INR 1.06 (0.83-1.09) 05/25/19 08:42 - ....Imaging EKG: Report Reviewed (Tele: NSR, no PAF) Problem List - Problems (1) Hypertensive urgency Code(s): I16.0 - HYPERTENSIVE URGENCY (2) Basal ganglia stroke Code(s): I63.9 - CEREBRAL INFARCTION, UNSPECIFIED Assessment/Plan 05/25/2019 Brain MRI: IMPRESSION: Focal acute/subacute infarct in the left periventricular white matter extending inferiorly to posterior margin of the left basal ganglia measuring approximately 6 mm in width. Mild dilatation of the lateral ventricles and T2 hyperintense foci in the periventricular white matter suspicious for demyelinating plaques. Further characterization with T2 FLAIR sagittal images of the brain is needed. Contrast-enhanced MRI of the brain with also be helpful to rule out any active demyelinating plaques. 1.5 cm retention cyst versus polyp in the left x-ray antrum, inferiorly 05/25/2019 Brain MRA: Negative 05/26/2019 Echo: Normal LV and RV size and fxn, impaied LV relaxation, normal biatrial sizes, mild MR, TR, AR 05/26/2019 Carotid US: No stenosis 1. Acute left basal ganglia stroke, small vessel mediated in setting of elevated BP resolving 2. Hypertensive urgency 3. Mild cerebral palsy P: 1. hall monitor unrevealing for PAF thus far, may benefit from nursing home monitoring if embolic stroke is a suspect 2. Agree with ASA 81 qd, losartan 50 bid, Toprol XL 50 qd with uptitration as hemodynamics tolerate, decrease Crestor 10 qhs 3. May d/c with outpatient f/u
[2019-05-27] MEDS ORDERED: ROSUVASTATIN CA 10 MG TABLET (FP) PO SCH (11:43)
[2019-05-27 14:28] VITALS: TEMP 98.6
--- NOTE | 2019-05-27 15:48 | DS ---
Physical Examination Vital Signs: Vital Signs Temperature 98.6 F 05/27/19 13:27 Pulse Rate 76 05/27/19 13:27 Respiratory Rate 18 05/27/19 13:27 Blood Pressure 161/102 H 05/27/19 13:27 O2 Sat by Pulse Oximetry (%) 98 05/27/19 10:00 Constitutional: Yes: No Distress HENT: Yes: Atraumatic Neck: Yes: Supple Cardiovascular: Yes: Regular Rate and Rhythm Respiratory: Yes: CTA Bilaterally Gastrointestinal: Yes: Normal Bowel Sounds Extremities: Yes: WNL Neurological: Yes: Alert, Oriented Labs: CBC, BMP 05/25/19 08:42 05/25/19 08:42 Discharge Summary Reason For Visit: HYPERTENSIVE EMERGENCY,PARESTHESIA Current Active Problems Basal ganglia stroke (Acute) HTN (hypertension) (Acute) Hypertensive urgency (Acute) Tingling of right arm and right side of face (Acute) - Instructions Referrals: Attila Devries MD [Staff Physician] - Paresh Guaman DO [Staff Physician] - Sadia Sena MD [Staff Physician] - - Home Medications Comprehensive Discharge Medication List: Ambulatory Orders Aspirin [ASA -] 81 mg PO DAILY #30 tab.chew 05/26/19 Metoprolol Succinate [Toprol XL -] 50 mg PO DAILY #30 tab.sr.24h 05/26/19 Losartan Potassium [Cozaar -] 50 mg PO BID #60 tablet 05/27/19 Rosuvastatin [Crestor -] 10 mg PO HS #30 tablet 05/27/19 dc home fu pmd/cardio 2-3 days
[2019-05-27 18:33] VITALS: BP 158/94; PULSE 78
== END 2019-05-27 18:29 | disposition home or self-care (01) | DRG 65 ==
LOC: JER 07:26 → UNDOADMOB 10:32 → JERBED 10:32 → INTOOBSV 10:32 → JERBED 17:13 → J4S 05-26 01:17 → OBSVTOIN 05-26 14:16
PROVIDERS: ADMIT Internal Medicine; ATTEND Internal Medicine
DX: I63.9 Cerebral infarction, unspecified (principal); G81.91 Hemiplegia, unspecified affecting right dominant side; I16.0 Hypertensive urgency; G80.9 Cerebral palsy, unspecified; R20.2 Paresthesia of skin; R29.701 NIHSS score 1
CPT/HCPCS: 36415; 70450-TC; 70544-TC; 70551-TC; 80053; 80061; 81003; 82550; 83036; 83721; 83735; 84443; 84484; 85025; 85610; 85730; 86850; 86900; 86901; 93005; 93010; 93306-TC; 93880-TC; 97116-GP; 97161-GP; 99285-25; G0378

== ENCOUNTER 2021-05-27 13:48 | Emergency (ER) | payer OTHER ==
[2021-05-27 14:05] VITALS: BP 165/99; PULSE 99; TEMP 98.4; BMI 42.4
[2021-05-27] MEDS ORDERED: AMOX TR/POT CLAV 875MG/125MG TABLETS (FP) PO ONE (14:26)
[2021-05-27] MEDS ORDERED: DIPHTH,PERTUSS(ACELL),TET 0.5 ML DISP.SYRIN IM ONE ×2 (14:26→14:43)
[2021-05-27] MEDS ORDERED: AMOX TR/POT CLAV 875MG/125MG TABLETS (FP) ONE (14:43)
== END 2021-05-27 14:56 | disposition home or self-care (01) ==
LOC: JERFT 13:48
PROC: 3E0234Z Introduction of Serum, Toxoid and Vaccine into Muscle, Percutaneous Approach (ICD-10-PCS; principal; 2021-05-27)
DX: S51.852A Open bite of left forearm, initial encounter (principal)
CPT/HCPCS: 90715; 99283-25

== ENCOUNTER 2021-11-09 14:08 | Emergency (ER) | payer OTHER ==
[2021-11-09 14:13] VITALS: BMI 41.8
[2021-11-09] MEDS ORDERED: amLODIPine BESYLATE 5 MG TABLET (FP) PO ONE (15:05)
[2021-11-09] MEDS ORDERED: amLODIPine BESYLATE 2.5 MG TABLET (FP) ONE (15:12)
[2021-11-09 16:03] LABS: BASO % 0.7 % (0-2.0); EOS % 1.1 % (0-4.5); HEMATOCRIT 42.7 % (35.4-49); HEMOGLOBIN 13.4 GM/dL (11.7-16.9); LYMPH % 13.4 % (8-40); MCH 21.3 pg (25.7-33.7); MCHC 31.3 g/dl (32.0-35.9); MEAN CELL VOLUME 68.2 fl (80-96); MEAN PLT VOLUME 8.2 fl (7.5-11.1); MONO % 7.1 % (3.8-10.2); NEUT % 77.7 % (42.8-82.8); PLATELET COUNT 243 10^3/uL (134-434); RBC 6.26 M/mm3 (4.00-5.60); RDW 14.7 % (11.9-15.9)
[2021-11-09 16:10] VITALS: TEMP 97.9
[2021-11-09 16:12] LABS: CHLORIDE 106 mmol/L (98-107); SODIUM 142 mmol/L (136-145)
[2021-11-09 16:14] LABS: CALCIUM 9.3 mg/dL (8.5-10.1)
[2021-11-09 16:15] LABS: ALBUMIN 3.9 g/dl (3.4-5.0); ANION GAP 4 MMOL/L (8-16); BLOOD UREA NITROGEN 17.4 mg/dL (7-18); CO2 32 mmol/L (21-32); GLUCOSE,RANDOM 125 mg/dL (74-106)
[2021-11-09 16:18] LABS: CREATININE 1.1 mg/dL (0.55-1.3); SGOT/AST 18 U/L (15-37); SGPT/ALT 27 U/L (13-61)
[2021-11-09 16:19] LABS: TOT PROT 8.1 g/dl (6.4-8.2)
[2021-11-09 16:20] LABS: BILIRUBIN,TOTAL 0.4 mg/dL (0.2-1)
[2021-11-09 16:21] LABS: ALK PHOS 78 U/L (45-117)
[2021-11-09 16:41] LABS: ANISOCYTOSIS 1+; MACROCYTOSIS 0; PLATELET ESTIMATE NORMAL; TARGET CELLS 1+
[2021-11-09 17:03] VITALS: BP 170/110; PULSE 99
== END 2021-11-09 17:26 | disposition home or self-care (01) ==
LOC: JER 14:08
DX: I10 Essential (primary) hypertension (principal)
CPT/HCPCS: 36415; 71045-TC-FY; 80053; 82550; 82553; 84484; 85025; 93005; 93010; 99285-25